=== PATIENT | male | born 2000 | race Caucasian/White ===

== ENCOUNTER 2020-01-21 20:44 | Emergency (ER) | payer OTHER ==
--- OUTSIDE RECORDS SUMMARY | 2020-01-21 20:56 | XMS REPORT | Continuity of Care Document ---
:2000 External Reference #:[id number] Author Name Jennifer Sherman O.D. Address [address] [place] [address] Care Team Providers Name Role Phone Kenia Magdaleno MD - Family Medicine Care Team Information [employer] Problems Active Problems Provider Date Myopia Jennifer Sherman O.D. Onset: 01/19/2020 Regular astigmatism Jennifer Sherman O.D. Onset: 01/19/2020 Social History Type Date Description Comments Sex Unknown ETOH Use Denies alcohol use Tobacco Use Start: Unknown Patient has never smoked Recreational Drug Use Denies Drug Use Smoking Status Reviewed: 01/19/20 Patient has never smoked Allergies, Adverse Reactions, Alerts Active Allergies Reaction Severity Comments Date Cephalexin 01/19/2020 Medications Active Medications SIG Qnty Indications Ordering Provider Date Erythromycin apply thin strip 1Tube H10.89 Jennifer Choudhury 01/19/2020 5mg/GM to all four Yasmany Sherman.Terry Ointment eyelid margins x every night for 2 weeks History Medications No Active Medications Unknown 01/19/2020 - 01/19/2020 Immunizations Description No Information Available Vital Signs Description No Information Available Results Description No Information Available Procedures Description No Information Available Medical Devices Description No Information Available Encounters Description No Information Available Assessments Date Code Description Provider 01/19/2020 H10.89 Other conjunctivitis Jennifer Sherman O.D. Plan of Treatment 01/19/2020 - Jennifer Sherman O.D.H10.89 Other conjunctivitisNew Medication: Erythromycin 5 mg/GM - apply thin strip to all four eyelid margins x every night for 2 weeksComments:start erythromycin ointment at bedtime for 2 weeks.Follow up:2 Week Follow Up with [facility] Functional Status Description No Information Available Mental Status Description No Information Available Referrals Description No Information Available
--- NOTE | 2020-01-21 21:32 | ED ---
Head Injury - HPI Summary HPI Summary: 19 year old male presents with head injury today. States that he got kneed in the head during a football game. Friends states that he passed out for a couple seconds and was out of it for a couple minutes. He states he was really dizzy after the incident. he does not know if he had a LOC. His symptoms were getting better but now are worse again. He states that he has a headache all over. States he was dry heaving at least 3 times earlier today but no vomiting. Has a history of head injuries. Not currently dizzy. Denies any photophobia. No change in vision. No neck pain. No other injury. friends states that he has been acting normal. - History Of Current Complaint Chief Complaint: EDHeadInjury Stated Complaint: HEAD INJURY PER PT Time Seen by Provider: 01/21/20 21:00 Pain Intensity: 3 - Allergies/Home Medications Allergies/Adverse Reactions: Allergies Allergy/AdvReac Type Severity Reaction Status Date / Time cephalexin Allergy Unknown Verified 01/21/20 20:47 Reaction Details PMH/Surg Hx/FS Hx/Imm Hx Endocrine/Hematology History: Denies: Hx Anticoagulant Therapy Respiratory History: Denies: Hx Asthma Infectious Disease History: No Infectious Disease History: Denies: Traveled Outside the [place] in Last 30 Days - Family History Known Family History: Positive: Non-Contributory - Social History Alcohol Use: None Substance Use Type: Reports: None Smoking Status (MU): Never Smoked Tobacco Review of Systems Negative: Fever Negative: Chest Pain Negative: Shortness Of Breath Positive: Vomiting, Nausea Positive: Headache All Other Systems Reviewed And Are Negative: Yes Physical Exam Triage Information Reviewed: Yes Vital Signs On Initial Exam: Initial Vitals Temp Pulse Resp BP Pulse Ox 98.1 F 78 15 143/96 97 01/21/20 20:45 01/21/20 20:45 01/21/20 20:45 01/21/20 20:45 01/21/20 20:45 Vital Signs Reviewed: Yes Appearance: Positive: Well-Appearing Skin: Positive: Warm, Dry, Other - no step off, racoon, eyes, muir sign Head/Face: Positive: Normal Head/Face Inspection Eyes: Positive: Normal, EOMI, SAGE, Conjunctiva Clear ENT: Positive: Pharynx normal, TMs normal Respiratory/Lung Sounds: Positive: Clear to Auscultation, Breath Sounds Present Cardiovascular: Positive: Normal, RRR Abdomen Description: Positive: Nontender, Soft Bowel Sounds: Positive: Present Musculoskeletal: Positive: Normal Neurological: Positive: Normal Psychiatric: Positive: Normal Procedures - Sedation Patient Received Moderate/Deep Sedation with Procedure: No Diagnostics - Vital Signs Vital Signs Temp Pulse Resp BP Pulse Ox 01/21/20 20:45 98.1 F 78 15 143/96 97 - Laboratory Lab Statement: Any lab studies that have been ordered have been reviewed, and results considered in the medical decision making process. Re-Evaluation - Re-Evaluation First Eval Re-Evaluation Time: 22:15 Change: Unchanged Comment: normal neuro exam Head Injury Course/Dx Course Of Treatment: 19 year old male presents with head injury today. States that he got kneed in the head during a football game. Friends states that he passed out for a couple seconds and was out of it for a couple minutes. He states he was really dizzy after the incident. he does not know if he had a LOC. His symptoms were getting better but now are worse again. He states that he has a headache all over. States he was dry heaving at least 3 times earlier today but no vomiting. Has a history of head injuries. Not currently dizzy. Denies any photophobia. No change in vision. No neck pain. No other injury. On exam has a normal neuro exam. Nystagmus noted. had normal gait. according to [place] rules does not need any head imaging. discussed case with dr isaacs. patient family wants him to be seen by MD. dr isaacs saw and agrees no CT needed. gave concussion precautions. will pull from class for next couple days. told follow up with [facility]. patient understand and agrees with plan. - Diagnoses Differential Diagnosis/HQI/PQRI: Concussion Without LOC, Contusion, Intracranial Bleed Provider Diagnoses: Head injury Discharge ED - Sign-Out/Discharge Documenting (check all that apply): Patient Departure - Discharge Plan Condition: Good Disposition: HOME Patient Education Materials: Concussion (ED) Forms: *School Release Referrals: No Primary Care Phys,NOPCP [Primary Care Provider] - Additional Instructions: Place ice on area as needed Take Tylenol for headache every 6 hours Modify activities as tolerated Follow up with [facility] within 5 days Return to ED if develop vomiting, severe headache, change in behavior, or any new or worsening symptoms - Billing Disposition and Condition Condition: GOOD Disposition: Home - Attestation Statements Provider Attestation: I have seen the patient with the [facility] and agree with the plan and documentation below except as noted: briefly this is a 19-year-old male who presents after head injury. GCS 15, neurologically intact. [place] Head CT Rule High Risk: 1. GCS < 15 at two hours after injury? no 2. Suspected open or depressed skull fracture? no 3. Basilar skull fracture (hemotympanum, "raccoon" eyes, cerebrospinal fluid otorrhea/rhinorrhea, Muir's sign)? no 4. Vomiting, two or more episodes? no 5. Age > 65? no 6. Retrograde amnesia, 30 mins? no 7. "Dangerous" Mechanism (PEDSvsAuto, Ejection, Fall >3ft, Fall > 5 stairs) no ? Citation: Lancet. 2000March 26;357(8823):1391-6. The [place] CT Head Rule for patients with minor head injury. Hector Isaacs MD
[2020-01-21 22:29] VITALS: BP 135/87
== END 2020-01-21 22:27 | disposition home or self-care (01) ==
LOC: ED 20:44
DX: S09.90XA Unspecified injury of head, initial encounter (principal); W50.0XXA Accidental hit or strike by another person, initial encounter; Y93.61 Activity, american tackle football; Y99.9 Unspecified external cause status; R11.2 Nausea with vomiting, unspecified; R51 Headache
CPT/HCPCS: 99282